=== PATIENT | male | born 1995 | race Caucasian/White ===

== ENCOUNTER 2021-03-20 18:22 | Emergency (ER) | payer BC, SELFPAY ==
--- NOTE | ~2021-03-20 | XR_ITS ---
EXAMINATION: XR chest 1V portable DATE: 03/20/2021 19:51 INDICATION: COVID positive presenting with cough and chest pain TECHNIQUE: frontal view of the chest was obtained. COMPARISON: None FINDINGS: The lungs are clear with no focal airspace opacities, pulmonary edema, pleural effusion or pneumothor ax. The cardiomediastinal silhouette is normal. Visualized bones and soft tissues are unremarkable. IMPRESSION: 1. Normal chest radiograph. Reviewed, dictated and finalized at location A. IMPRESSION: 1. Normal chest radiograph.
[2021-03-20 18:25] VITALS: BP 151/92; PULSE 100; RESP 16; TEMP 36.3; O2SAT 100
--- NOTE | 2021-03-20 19:32 | ECG_ITS ---
Measurements Intervals [place] Rate: 110 P: 60 MA: 123 QRS: 53 QRSD: 91 T: -9 QT: 309 QTc: 418 Interpretive Statements SINUS TACHYCARDIA NONSPECIFIC ST & T-WAVE ABNORMALITY- INFERIOR LEADS BASELINE ARTIFACT- I, II, III, AVL, AVF ABNORMAL ECG Electronically Signed On 03-21-2021 6:51:32 CDT by Randolph Shields D.O.
--- NOTE | 2021-03-20 19:33 | ED.GENADULT ---
HPI - General Adult General Chief complaint: Upper Respiratory Infection Stated complaint: A little bit of covid problems Time Seen by Provider: 03/20/21 19:20 Source: patient Mode of arrival: ambulatory Limitations: no limitations History of Present Illness HPI narrative: Patient presents for evaluation of respiratory symptoms. He states on 03/07/2020 when he tested positive for Covid after he went to [facility] for screening. He states his roommate tested positive which prompted him to investigate that further. Over the course of the last week and a half he has developed nonproductive cough, shortness of breath, burning sensation in the chest, pressure in lower lungs , hot flashes, nausea and diarrhea. He has been taking Robitussin for his symptoms. His mother gave him an albuterol inhaler which he has been using every four hours. He states he has asthma as a child. He does not smoke cigarettes but does smoke marijuana. Denies illicit drugs. Related Data Home Medications Medication Instructions Recorded Confirmed No Home Medications 03/20/21 Allergies Allergy/AdvReac Type Severity Reaction Status Date / Time No Known Allergies Allergy Mild Verified 03/20/21 19:50 Review of Systems Review of Systems: CONSTITUTIONAL: Reports hot flashes. Denies objective fever. EYES: Denies visual changes, redness, or discharge. ENT: Denies rhinorrhea, congestion, sore throat, or otalgia. CARDIOVASCULAR: Reports pleuritic chest pain and pressure in the lower lungs . Reports sensation of racing heart. Denies edema. RESPIRATORY: Reports SOB and cough GASTROINTESTINAL: Reports nausea without vomiting. Reports diarrhea. Denies abdominal pain and vomiting GENITOURINARY: Denies dysuria or hematuria. SKIN: Denies rash or itching. MUSCULOSKELETAL: Denies back pain, joint pain, or myalgia. NEUROLOGIC: Denies headache, numbness, dizziness, or weakness. PSYCHIATRIC: Denies anxiety or depression. [facility] Past Medical History Medical History (Updated 03/20/21 @ 21:42 by MARY JO Shaw, [place]) Asthma Surgical History Surgical History No pertinent past surgical history Family History Family History Mother Tobacco use Father Glaucoma Social History Social History (Updated 03/20/21 @ 19:39 by Donald Cochran, [facility], ) Substance use: current Substance use type: marijuana Living arrangements: with roommate(s) Gender identity (if verbalized by the patient): Male Spiritual care concerns: No Exam Narrative: GENERAL: Well-appearing, well-nourished, and in no acute distress. HEAD: Normocephalic, atraumatic. EYES: PERRLA and EOMI. ENT: Nares clear, no rhinorrhea or epistaxis. Mucous membranes moist. Oropharynx without tonsillar hypertrophy exudate or other lesions. Bilateral TMs pearly tellez nonbulging NECK: Supple. No adenopathy or masses. No carotid bruits or JVD CHEST: Clear to auscultation. No respiratory distress. No wheezes rales or rhonchi HEART: Rate 100. No murmur heard. Normal peripheral pulses. ABDOMEN: Soft, nontender, nondistended, normal active bowel sounds. EXTREMITIES: Normal range of motion. No edema. SKIN: Warm, dry, no rash. NEURO: No focal deficits. Alert and oriented x3. PSYCH: Normal mood and affect. Course Course Emergency Course: Is a 26-year-old male who presented with complaints of respiratory symptoms with current Covid infection. D-dimer is negative. Trope negative. EKG with no acute ischemic changes. Chest x-ray negative. Saturations are normal on RA. Advise close follow-up reporting symptoms. Vital Signs Vital signs: Vital Signs Temperature 36.3 C L 03/20/21 18:25 Pulse Rate 100 03/20/21 18:25 Respiratory Rate 16 03/20/21 18:25 Blood Pressure 151/92 H 03/20/21 18:25 Pulse Oximetry 100 03/20/21 18:25 Temperature 36.3 C L 03/20/21 18:2
[2021-03-20 20:06] LABS: Basophils Absolute Auto 0.1 K/mm3 (0.0-0.1); Basophils Percent Auto 0.5 % (0.2-1.2); Eosinophils Absolute Auto 0.1 K/mm3 (0-0.3); Eosinophils Percent Auto 0.7 % (0-4.4); Hematocrit 48.7 % (42.0-52.0); Hemoglobin 16.8 g/dL (14.0-18.0); Immature Granulocyte Absolute 0.04 K/mm3 (0.00-0.031); Immature Granulocyte Percent A 0.4 % (0-0.5); Lymphocytes Absolute Auto 2.66 K/mm3 (0.9-3.2); Lymphocytes Percent Auto 24.2 % (18.3-44.2); Mean Corpuscular HGB Conc 34.5 g/dl (32-36); Mean Corpuscular Hemoglobin 29.7 pg (26-34); Mean Platelet Volume 9.9 fl (7.4-10.4); Monocytes Absolute Auto 1.2 K/mm3 (0.1-0.6); Monocytes Percent Auto 10.5 % (2.6-8.5); Neutrophils Percent Auto 63.7 % (45.5-73.1); Platelet Count Result 320 k/mm3 (150-375); Red Blood Count 5.66 M/mm3 (4.6-6.20); Red Cell Distribution Width 11.4 % (11.5-14.5)
[2021-03-20 20:16] LABS: Alanine Aminotransferase 33 U/L (4-50); Albumin Level 4.8 g/dL (3.5-5.1); Alkaline Phosphatase 86 U/L (38-126); Anion Gap 10 mmol/L (8-16); Aspartate Amino Transferase 28 U/L (17-59); Bilirubin,Total 0.5 mg/dL (0.2-1.3); Blood Urea Nitrogen 12 mg/dL (9-20); Calcium 9.7 mg/dL (8.4-10.2); Carbon Dioxide 27 mmol/L (22-30); Chloride 100 mmol/L (98-107); Estimated CRCL calculation 107 ml/min; Estimated Glomerular Filt Rate > 60; Glucose 95 mg/dL (65-110); Potassium 3.7 mmol/L (3.4-5.0); Sodium 137 mmol/L (137-145)
[2021-03-20 20:17] LABS: Prothrombin Time 12.7 Seconds (11.1-14.7)
[2021-03-20 20:18] LABS: Partial Thromboplastin Time 25.5 SECONDS (22.3-36.8)
[2021-03-20 20:20] LABS: D Dimer 0.39 ug/mL (<0.48)
[2021-03-20 20:27] LABS: Troponin I < 0.012 ng/mL (0.000-0.034)
[2021-03-20 21:49] VITALS: BP 146/90; PULSE 83; RESP 18; O2SAT 99
== END 2021-03-20 22:04 | disposition home or self-care (01) ==
PROVIDERS: Emergency Provider Nurse Practitioner
DX: U07.1 COVID-19 (principal); J45.909 Unspecified asthma, uncomplicated; R00.0 Tachycardia, unspecified; R94.31 Abnormal electrocardiogram [ECG] [EKG]
CPT/HCPCS: 36415; 71045; 80053; 84484; 85025; 85380; 85610; 85730; 93005; 99284